=== PATIENT | female | born 1950 | race Native Hawaiian/Other Pacific Islander ===

== ENCOUNTER 2022-02-26 23:14 | Emergency (ER) | payer OTHER ==
[~2022-02-26] VITALS: Ht 152.4 cm; Wt 60.3 kg
[2022-02-27 00:34] LABS: PLATELET COUNT 304 K/uL (152-353)
[2022-02-27 00:37] LABS: POTASSIUM 3.5 mmol/L (3.6-5.2)
[2022-02-27 02:10] VITALS: BP 152/86; TEMP 98.6
== END 2022-02-27 02:10 | disposition home or self-care (01) ==
LOC: ED 23:14
PROVIDERS: Emergency Medicine Emergency Medical Services
PROC: 0T9B80Z Drainage of Bladder with Drainage Device, Via Natural or Artificial Opening Endoscopic (ICD-10-PCS; principal; 2022-02-27)
DX: R33.8 Other retention of urine (principal); I10 Essential (primary) hypertension
CPT/HCPCS: 80053; 81000; 83735; 84484; 85027; 85379; 93005; 96360; 96361; 99284; J3490